=== PATIENT | male | born 1960 | race Caucasian/White ===

== ENCOUNTER 2021-07-10 16:50 | Inpatient (IN) ==
[~2021-07-10 16:50] MED LIST: CHECK SCOPOLAMINE PATCH PLACEMENT SCH
[2021-07-10] MEDS ORDERED: SCOPOLAMINE 1 MG TDSY TD ONE (17:25)
--- NOTE | 2021-07-10 17:25 | Anesthesiology Consultation ---
Date of Service July 10, 2021 Assessment & Plan (1) Encounter for pre-operative examination: Chart Review Chart Review: Acceptable Risk for Surgery Consults Requested none ASA ASA2 Proposed Anesthesia Anesthesia Type: General Risk / Benefits Reviewed With: PT / POA / Parent / Guardian, Accepts Plan and Informed Consent Obtained History Surgery Operation Date: 07/10/21 11:10 Proposed Procedures p Right Knee Incision and Drainage with Poly Exchange - Twan Mckeon DO Height/Weight Height: 6 ft Weight: 115.666 kg Allergies Allergy/AdvReac Type Severity Reaction Status Date / Time codeine Allergy Severe reddness/na Verified 07/10/21 16:59 usea/vomiti ng Medications Home Medications Medication Instructions Recorded Confirmed Last Taken acetaminophen 500 mg tablet 500 mg PO Q6H PRN 07/10/21 07/10/21 07/07/21 aspirin 81 mg capsule 81 mg PO DAILY 07/10/21 07/10/21 Unknown bupropion HCl 300 mg 24 hr tablet, 300 mg PO QAM 07/10/21 07/10/21 Unknown extended release (Wellbutrin XL) escitalopram oxalate 20 mg tablet 20 mg PO DAILY 07/10/21 07/10/21 Unknown levothyroxine 75 mcg tablet 75 mcg PO DAILY 07/10/21 07/10/21 Unknown (Synthroid) omeprazole 20 mg capsule,delayed 40 mg PO DAILY 07/10/21 07/10/21 Unknown release NPO Date Last Intake of Fluids: 07/10/21 Time Last Intake of Fluids: 09:00 Date Last Intake of Solids: 07/10/21 Time Last Intake of Solids: 09:00 Past Medical History Medical History Asthma Carpal tunnel syndrome Dyspnea Hx of bacterial meningitis Hypothyroidism Mediastinal lymphadenopathy Sarcoidosis Sleep disorder Varicose vein of leg Venous insufficiency Exercise / Class Metabolic Activity II 4-5 Yardwork/Stairs/Walk up hill Past Surgical History Surgical History History of repair of ACL Hx of total knee arthroplasty Past Anesthesia History No Hx of Anesthesia Complications and No Family Hx of Anesthesia Complications History of PONV No Hx of PONV and No Hx of Motion Sickness Social History Smoking Status: Never smoker Do You Dip or Chew Tobacco: No Hx Alcohol Use: No Hx Substance Use: No Physical Exam Vital Signs Last Vital Signs Temp 98.1 F 07/10/21 17:00 Pulse 80 07/10/21 17:00 Resp 18 07/10/21 17:00 BP 131/85 07/10/21 17:00 Pulse Ox 98 07/10/21 17:00 ENMT Mouth: no dentition abnormality Thyromental Distance: > or= 3.5 Finger Breadths Mallampati Class: II Neck normal visual inspection Respiratory normal respiratory effort Auscultation: lungs clear to auscultation bilaterally Cardiovascular Rate/Rhythm: regular rate and regular rhythm
[2021-07-10] MEDS ORDERED: ATROPINE SULFATE 0.1 MG/ML 10ML SYR IV PRN (17:27)
[2021-07-10] MEDS ORDERED: ePHEDrine sulfate 50 MG/ML AMP IV PRN (17:27)
[2021-07-10] MEDS ORDERED: ONDANSETRON INJ 2 MG/ML 2 ML VIAL IV PRN ×2 (17:27→20:43)
[2021-07-10] MEDS ORDERED: fentaNYL citrate 100 MCG/2 ML VIAL ONE ×2 (17:55→18:41)
[2021-07-10] MEDS ORDERED: MIDAZOLAM HCL 1 MG/ML 2ML VIAL ONE (17:55)
[2021-07-10] MEDS ORDERED: PROPOFOL IV EMULSION 10 MG/ML 20 ML VIAL IV ONE (17:55)
[2021-07-10] MEDS ORDERED: LIDOCAINE 2% 2 ML VIAL/AMP(20MG/ML) INFIL ONE (17:55)
[2021-07-10] MEDS ORDERED: ONDANSETRON INJ 2 MG/ML 2 ML VIAL ONE (17:55)
--- NOTE | 2021-07-10 18:08 | History & Physical Bridge Note ---
Date of Service July 10, 2021 History & Physical Bridge Note I have examined the patient, reviewed the History & Physical and in the interval since the performance of the History & Physical I have noted the following changes of clinical significance: no changes noted
[2021-07-10] MEDS ORDERED: ceFAZolin 330 MG/ML 1 GM VIAL ONE (18:09)
[2021-07-10] MEDS ORDERED: ceFAZolin 2,000 MG/15 ML IV PUSH IV ONE (18:14)
--- NOTE | 2021-07-10 18:23 | History & Physical Report ---
Date of Service July 10, 2021 Assessment & Plan (1) Postoperative wound dehiscence: Plan: Patient will require irrigation debridement, possible polyethylene bearing change of the right knee wound dehiscence. X-rays were taken at [facility] and are reading no fractures or dislocations. He will be taken to the operating room shortly by Dr. Mckeon for the above-noted I&D. History of Present Illness Chief Complaint: Pain right knee Primary Care Provider: Twan Mckeon DO Patient is a 60-year-old white male known to our practice who is status post right total knee arthroplasty by Dr. Mckeon just prior to 2020. The patient states he was doing quite well. He states that the incision look completely healed and he was progressing well with his physical therapy. Today he wanted to go outside to shovel snow off the sidewalk and driveway a little bit. In the process of shoveling snow, he slipped and fell and sounds like he hyperflexed his right knee. He had immediate pain in his right knee and when he looked down to look at the knee a little further, he noticed a lot of blood. He obviously had difficulty ambulating and was then brought to the [facility] emergency room. They examined him and and found dehiscence of his right knee wound. Dr. Mckeon's office was contacted and he had them transport the patient to [facility] for further care. Patient denies any shortness of breath, chest pain, lightheadedness prior to or after the fall. He did not lose consciousness. He is now here for repair of his wound dehiscence. Allergies Allergy/AdvReac Type Severity Reaction Status Date / Time codeine Allergy Severe reddness/na Verified 07/10/21 16:59 usea/vomiti ng Home Medications Medication Instructions Recorded Confirmed Type acetaminophen 500 mg tablet 500 mg PO Q6H PRN 07/10/21 07/10/21 History aspirin 81 mg capsule 81 mg PO DAILY 07/10/21 07/10/21 History bupropion HCl 300 mg 24 hr tablet, 300 mg PO QAM 07/10/21 07/10/21 History extended release (Wellbutrin XL) escitalopram oxalate 20 mg tablet 20 mg PO DAILY 07/10/21 07/10/21 History levothyroxine 75 mcg tablet 75 mcg PO DAILY 07/10/21 07/10/21 History (Synthroid) omeprazole 20 mg capsule,delayed 40 mg PO DAILY 07/10/21 07/10/21 History release Past Med/Surg History Medical History Asthma Carpal tunnel syndrome Dyspnea Hx of bacterial meningitis Hypothyroidism Mediastinal lymphadenopathy Sarcoidosis Sleep disorder Varicose vein of leg Venous insufficiency Surgical History History of repair of ACL Hx of total knee arthroplasty Social History Smoking Status: Never smoker Second Hand Exposure: No; Do You Dip or Chew Tobacco: No; Tobacco Cessation Education Requested by Patient: No Hx Alcohol Use: No Hx Substance Use: No Preferred Language: Danish Communication Ability: Effective Visual Impairment: Diminished Hearing Ability: Use of Hearing Aid 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 Beliefs That Will Affect Care: None marital status: Current Living Situation: Spouse Other Information That Helps Us Care for You: No Feels Safe at Home: Yes Safety Concerns: Feels Safe At This Time Assistive Devices: Cane Review of Systems Review of Systems: All systems reviewed & are unremarkable except as noted in HPI & below Physical Exam Constitutional: WD/WN, vitals as above Eyes: PERRL, conjunctivae normal, anicteric sclerae ENMT: external ear and nose normal, oropharynx normal Neck: trachea midline, no thyromegaly Respiratory: normal respiratory effort, lungs clear to auscultation Cardiovascular: RRR, no murmur, no edema Gastrointestinal (Abdomen): normal bowel sounds, soft, nontender, no hepatosplenomegaly Musculoskeletal: On examination of the patient's right knee, he has a large dressing over the right knee that is covered in blood and finds a large wound dehiscence underneath. No attempts were made to do range of motion of the right knee. He has good range of motion of his right ankle and toes and denies any decreased sensation. Left lower extremity is unaffected at this time and he denies any pain at the left hip, knee, ankle. Upper extremities are unaffected and range of motion is within normal limits. He has no gross motor or sensory loss seen at this time. Distal pulses are equal bilaterally of the upper and lower extremities. Skin: no rashes, warm and dry Results & Data Results & Data ([facility]) Vital Signs (Past 12 Hours) Vital Signs Temp Pulse Resp BP Pulse Ox 07/10/21 17:00 36.7 C 80 18 131/85 98
[2021-07-10] MEDS ORDERED: DEXAMETHASONE SOD INJ 4 MG/ML VIAL ONE (18:37)
--- NOTE | 2021-07-10 19:27 | Operative Report ---
Post Operative Report Pre & Post Diagnosis Operation Date: 07/10/21 11:10 Pre-Op Diagnosis: Right Total Knee Arthroplasty Wound Dihiscence Post-Op Diagnosis: Right Total Knee Arthroplasty Wound Dihiscence I identified the patient and participated in the time-out.: Yes Procedure Operation Date: 07/10/21 11:10 Actual Procedures p Right Knee Incision and Drainage with Poly Exchange(Right) to size G 12 polyrepair medial retinaculum repair subcu and skin Twan Mckeon DO Surgeon Twan Mckeon DO Casket Inspector Kavin GROVES Estimated Blood Loss 5 Findings Consistent with Post-Op Diagnosis Patient presents 1 month after having had a right total knee arthroplasty was shoveling snow and slipped on the underlying ice fell and dehisced his entire incision as well as medial retinacular repair with exposed metal Specimens Emy Drains None Anesthesia Type General Complications none Disposition Accompanied Patient To Recovery: No Disposition: Recovery Room Indications Patient presents with an exposed total knee arthroplasty after a bad fall on flexed knee in the snow possible underlying ice with a complete wound dehiscence of his medial retinaculum and skin Description of Procedure Patient presents after having had a fall slipping on the ice with sustaining a dehiscence of the right total knee arthroplasty as well as the deep retinaculum was completely ripped open patient presents with visible metal from the distal femur after proper prepping and draping the wound was irrigated with 9 L of sterile saline solution the polyethylene was removed it was also irrigated the Betadine soak was performed the thickness hemostasis was obtained to maintain the subcu tissues were all wound irrigated thoroughly meticulously a trial of a size 12 was placed and subsequently removed subsequently and the final polyethylene trial bipolar component was placed a size 12 wound was irrigated once again with copious sterile saline solution the stability of the knee in flexion extension mid flexion was excellent subsequently the patient socially had a medial retinacular wound was closed with #1 Vicryl subcu was closed with 0 Vicryl skin was closed with skin and skin clips a Prevena dressing was placed the patient placed in a postoperative knee immobilizer meticulous hemostasis having been obtained and maintained at all timesDue to the complex nature of the procedure, the entire surgery was performed with the operational assistance of [PAC Name]. The training program assistant, under direct supervision, was involved in the actual performance of all aspects of the surgical procedure including hemostasis, tissue retraction and incision, instrument management, patient positioning, and wound closure. I attest to the content of the Intraoperative Record and any orders documented therein. Any exceptions are noted below.
[2021-07-10] MEDS: fentaNYL citrate 100 MCG/2 ML VIAL IV PRN ×4 (19:56→20:11)
--- NOTE | 2021-07-10 20:21 | Anesthesiology Progress Note ---
Date of Service July 10, 2021 Anesthesia Post Procedure Vital Signs Vital Signs: Temp Pulse Pulse Resp BP BP Pulse Ox 07/10/21 20:10 79 19 136/96 92 07/10/21 20:00 80 16 146/96 H 100 07/10/21 19:52 36.3 C L 86 20 168/100 H 100 07/10/21 17:00 36.7 C 80 18 131/85 98 Pain Intensity Right Knee: Pain Intensity: 4 Transfer of Care Handoff Completed per policy Notes Mental Status: alert / awake / arousable Patient Amnestic to Procedure: Yes Nausea / Vomiting: adequately controlled Pain: adequately controlled Airway Patency, RR, SpO2: stable & adequate BP & HR: stable & adequate Hydration State: stable & adequate Anesthetic Complications: no major complications apparent
[2021-07-10] MEDS ORDERED: bisacodyL 10 MG SUPP PR PRN (20:43)
[2021-07-10] MEDS ORDERED: oxyCODONE HCL IR 5 MG TAB (IMMEDIATE RELEASE) PO PRN (20:43)
[2021-07-10] MEDS ORDERED: MAGNESIUM HYDROXIDE SUSP 30 ML UDC PO PRN (20:43)
[2021-07-10] MEDS ORDERED: NALOXONE HCL 0.4 MG/1 ML VIAL/CARP IV PRN (20:43)
[2021-07-10] MEDS ORDERED: SODIUM CHLORIDE 0.9% 1000ML 1,000 ML IV SCH (20:45)
[2021-07-10] MEDS ORDERED: SENNA 8.6 MG TAB PO SCH (21:00)
[2021-07-10] MEDS: KETOROLAC TROMETHAMINE 15 MG/ML VIAL IV SCH (21:37)
[2021-07-10] MEDS: ACETAMINOPHEN 500 MG TAB PO SCH (21:37)
[2021-07-10] MEDS: DOCUSATE SODIUM 100 MG CAP PO SCH (21:37)
[2021-07-11] MEDS: ceFAZolin 2000MG 2,000 MG/15 ML SYR IV SCH ×2 (02:51→11:00)
[2021-07-11] MEDS: HYDROmorphone INJ 0.5 MG/0.5 ML SYR IV PRN ×2 (04:03→10:27)
[2021-07-11] MEDS: KETOROLAC TROMETHAMINE 15 MG/ML VIAL IV SCH ×2 (05:51→12:05)
[2021-07-11] MEDS: ACETAMINOPHEN 500 MG TAB PO SCH ×2 (05:51→14:22)
[2021-07-11] MEDS ORDERED: LEVOTHYROXINE SODIUM 75 MCG TABLET PO SCH (06:30)
[2021-07-11 07:14] LABS: Hematocrit (blood only) 39.6 % (42-52); Hemoglobin 13.1 g/dL (14.0-18.0); Mean Corpuscular Hemoglobin 31.6 pg (25-34); Mean Corpuscular Hgb Conc 33.1 g/dL (32-36); Mean Corpuscular Volume 95.4 fL (80-100); Mean Platelet Volume 9.4 fL (7.4-10.4); Platelet Count 311 K/uL (130-400); RDW Coefficient of Variation 13.1 % (11.5-14.5); RDW Standard Deviation 45.2 fL (36.4-46.3); Red Blood Count 4.15 M/uL (4.7-6.1); White Blood Count 12.33 K/uL (4.8-10.8)
--- NOTE | 2021-07-11 07:28 | XRay Report ---
XR knee RT 1 or 2V routine CLINICAL HISTORY: Surgical Post Op COMPARISON: None FINDINGS: Alignment of the right knee arthroplasty is anatomic. There is no periprosthetic fracture or unexpected radiopaque foreign body. Skin mariel are present. A radiodensity along the lateral met aphysis of the distal right femur is postsurgical. IMPRESSION: Expected findings following total right knee arthroplasty. ACT 112: Negative or not required by law. Electronically signed by: Walt Cardona M.D. 07/11/2021 7:27 AM
[2021-07-11 07:32] LABS: BUN Creatinine Ratio 23.7 (10-20); Calcium 8.7 mg/dl (8.5-10.1); Creatinine Clr Calc Pharmacy 106.3 ml/min; Est GFR (African American) 97.9 ml/min; Est GFR (Non-African American) 84.5 ml/min; Potassium 4.6 mmol/L (3.5-5.1)
[2021-07-11] MEDS: DOCUSATE SODIUM 100 MG CAP PO SCH (08:51)
[2021-07-11] MEDS ORDERED: buPROPion XL 300 MG TABCR PO SCH (09:00)
[2021-07-11] MEDS ORDERED: ESCITALOPRAM OXALATE 20 MG TAB PO SCH (09:00)
[2021-07-11] MEDS ORDERED: MULTIVITAMIN TAB PO SCH (09:00)
[2021-07-11] MEDS ORDERED: ASPIRIN 81 MG ECTAB PO SCH (09:00)
--- NOTE | 2021-07-11 09:23 | Orthopedic Progress Note ---
Date of Service July 11, 2021 Assessment & Plan (1) Postoperative wound dehiscence: Plan: POD 1 s/p I&D right knee, Polyethylene bearing change for wound dehiscence. PT/OT protocols - Immobilizer on at all times. No ROM. DVT prophylaxis - ASA bid, AMY's Pain management as written. DC planning - Home with home PT. Addendum 12:28pm - Pt progressing well with PT. Plan for dc to home. Admission and Anticipated Discharge Date Admission Date: July 10, 2021 Subjective POD 1 Pt sitting up in bed awake, alert. Pain controlled fairly well. States he's having some thigh pain this AM and mild pain around his lower quadriceps area near the knee. Discussed his thigh pain was likely due to the tourniquette that was used during procedure. Lower quad pain likely due to surgical procedure. No other complaints this AM. Physical Exam Physical Exam: Dressings are C/D/I. Prevena wound vac functioning. Calves soft, NT. NV intact. Good DF/PF of the right foot. Results & Data ([facility]) Vital Signs (Past 12 Hours) Vital Signs Temp Pulse Pulse Resp BP Pulse Ox 07/11/21 07:23 37.0 C 83 18 110/67 96 07/11/21 06:32 94 07/11/21 04:00 36.5 C 81 18 112/72 97 07/10/21 23:13 36.4 C L 89 20 120/77 98 07/10/21 22:13 36.8 C 82 18 125/79 97 07/10/21 21:40 82 18 140/62 98 07/10/21 21:13 82 18 126/77 96 Laboratory Results Laboratory Results WBC 12.33 K/uL (4.8-10.8) H 07/11/21 06:40 RBC 4.15 M/uL (4.7-6.1) L 07/11/21 06:40 Hgb 13.1 g/dL (14.0-18.0) L 07/11/21 06:40 Hct 39.6 % (42-52) L 07/11/21 06:40 MCV 95.4 fL (80-100) 07/11/21 06:40 MCH 31.6 pg (25-34) 07/11/21 06:40 MCHC 33.1 g/dL (32-36) 07/11/21 06:40 RDW Std Deviation 45.2 fL (36.4-46.3) 07/11/21 06:40 RDW Coeff of Sherice 13.1 % (11.5-14.5) 07/11/21 06:40 Plt Count 311 K/uL (130-400) 07/11/21 06:40 MPV 9.4 fL (7.4-10.4) 07/11/21 06:40 Sodium 135 mmol/L (136-145) L 07/11/21 06:40 Potassium 4.6 mmol/L (3.5-5.1) 07/11/21 06:40 Chloride 104 mmol/L (98-107) 07/11/21 06:40 Carbon Dioxide 25 mmol/L (21-32) 07/11/21 06:40 Anion Gap 6 (3-11) 07/11/21 06:40 BUN 23 mg/dl (6-23) 07/11/21 06:40 Creatinine 0.97 mg/dl (0.6-1.4) 07/11/21 06:40 Est Cr Clr Drug Dosing 106.3 ml/min 07/11/21 06:40 Est GFR ( Amer) 97.9 ml/min 07/11/21 06:40 Est GFR (Non-Af Amer) 84.5 ml/min 07/11/21 06:40 BUN/Creatinine Ratio 23.7 (10-20) H 07/11/21 06:40 Glucose 152 mg/dl (70-99(Fasting)) H 07/11/21 06:40 Calcium 8.7 mg/dl (8.5-10.1) 07/11/21 06:40 Impressions Knee X-Ray 07/10/21 20:36 XR knee RT 1 or 2V routine CLINICAL HISTORY: Surgical Post Op COMPARISON: None FINDINGS: Alignment of the right knee arthroplasty is anatomic. There is no periprosthetic fracture or unexpected radiopaque foreign body. Skin mariel are present. A radiodensity along the lateral metaphysis of the distal right femur is postsurgical. IMPRESSION: Expected findings following total right knee arthroplasty. ACT 112: Negative or not required by law. Electronically signed by: Walt Cardona M.D. 07/11/2021 7:27 AM
--- NOTE | 2021-07-13 09:56 | Discharge Summary ---
Date of Service July 13, 2021 Admission HPI Per Admitting Provider Patient is a 60-year-old white male known to our practice who is status post right total knee arthroplasty by Dr. Mckeon just prior to 2020. The patient states he was doing quite well. He states that the incision look completely healed and he was progressing well with his physical therapy. Today he wanted to go outside to shovel snow off the sidewalk and driveway a little bit. In the process of shoveling snow, he slipped and fell and sounds like he hyperflexed his right knee. He had immediate pain in his right knee and when he looked down to look at the knee a little further, he noticed a lot of blood. He obviously had difficulty ambulating and was then brought to the [facility] emergency room. They examined him and and found dehiscence of his right knee wound. Dr. Mckeon's office was contacted and he had them transport the patient to [facility] for further care. Patient denies any shortness of breath, chest pain, lightheadedness prior to or after the fall. He did not lose consciousness. He is now here for repair of his wound dehiscence. Admission Exam Per Admitting Provider Physical Exam Constitutional: WD/WN, vitals as above Eyes: PERRL, conjunctivae normal, anicteric sclerae ENMT: external ear and nose normal, oropharynx normal Neck: trachea midline, no thyromegaly Respiratory: normal respiratory effort, lungs clear to auscultation Cardiovascular: RRR, no murmur, no edema Gastrointestinal (Abdomen): normal bowel sounds, soft, nontender, no hepatosplenomegaly Musculoskeletal: On examination of the patient's right knee, he has a large dressing over the right knee that is covered in blood and finds a large wound dehiscence underneath. No attempts were made to do range of motion of the right knee. He has good range of motion of his right ankle and toes and denies any decreased sensation. Left lower extremity is unaffected at this time and he denies any pain at the left hip, knee, ankle. Upper extremities are unaffected and range of motion is within normal limits. He has no gross motor or sensory loss seen at this time. Distal pulses are equal bilaterally of the upper and lower extremities. Skin: no rashes, warm and dry Principal Diagnosis Right Knee Wound Dehiscence s/p TKA Discharge Data Allergies Allergy/AdvReac Type Severity Reaction Status Date / Time codeine Allergy Severe reddness/na Verified 07/10/21 16:59 usea/vomiti ng Procedures Performed Operation Date: 07/10/21 11:10 Actual Procedures p Right Knee Incision and Drainage with Poly Exchange(Right) - Twan Mckeon DO Hospital Course (1) Postoperative wound dehiscence: Patient:LAI HUFFMAN Admit Date:07/10/21 MR#:[id number] Att Phy:Twan Mckeon D.O. Acct ID:[id number] Maci Phy:Twan Mckeon D.O. Date:1960 Fam Phy: Age:60 Location:3N Sex:M Room/Bed:N388-1 cc: ~ *NOTICE TO RECEIVING [employer]/AGENCY This information is strictly Confidential and protected under [place] law. [place] law prohibits you from making any further disclosure of this information unless further disclosure is expressly permitted by the written consent of the person to whom it pertains or is authorized by law. A general authorization for the release of medical or other information is not sufficient for this purpose. Hospital accepts no responsibility if the information is made available to any other person, INCLUDING THE PATIENT. ADDENDUM 07/11/21 151ddendum July 11, 2021 15:16 Nursing staff called. Pt voided 175ml on his own and had a post residual of 25ml. Ok for dc. Discussed with patient to continue pushing fluids for the next 24 hours. Addendum Signed By: <Electronically signed by Kavin Sanchez PA-C> 07/11/211517 Addendum Cosigned By: <Electronically signed by Twan Mckeon DO> 07/12/21 1005 Created: 07/11/21 ADDENDUM 07/11/21 1416Addendum July 11, 2021 14:08 Apparently the patient needed straight catheterization early this AM. Nursing staff notified me that patient had 180ml residual in his bladder currently but has not voided on his own yet. Intially set up for dc but dc now on hold. Pt to continue push oral fluids. If he is able to void, will plan for dc later today. Otherwise, he may need catheter placement. Will check in with nursing later today. Addendum Signed By: <Electronically signed by Kavin Sanchez PA-C> 07/11/211415 Addendum Cosigned By: <Electronically signed by Twan Mckeon DO> 07/12/21 1005 Created: 07/11/21 Date of Service July 11, 2021 Assessment & Plan (1) Postoperative wound dehiscence: Plan: POD 1 s/p I&D right knee, Polyethylene bearing change for wound dehiscence. PT/OT protocols - Immobilizer on at all times. No ROM. DVT prophylaxis - ASA bid, AMY's Pain management as written. DC planning - Home with home PT. Addendum 12:28pm - Pt progressing well with PT. Plan for dc to home. Admission and Anticipated Discharge Date Admission Date: July 10, 2021 Subjective POD 1 Pt sitting up in bed awake, alert. Pain controlled fairly well. States he's having some thigh pain this AM and mild pain around his lower quadriceps area near the knee. Discussed his thigh pain was likely due to the tourniquette that was used during procedure. Lower quad pain likely due to surgical procedure. No other complaints this AM. Physical Exam Physical Exam: Dressings are C/D/I. Prevena wound vac functioning. Calves soft, NT. NV intact. Good DF/PF of the right foot. Results & Data ([facility]) Vital Signs (Past 12 Hours) Vital Signs Temp Pulse Pulse Resp BP Pulse Ox 07/11/21 07:23 37.0 C 83 18 110/67 96 07/11/21 06:32 94 07/11/21 04:00 36.5 C 81 18 112/72 97 07/10/21 23:13 36.4 C L 89 20 120/77 98 07/10/21 22:13 36.8 C 82 18 125/79 97 07/10/21 21:40 82 18 140/62 98 07/10/21 21:13 82 18 126/77 96 Laboratory Results Laboratory Results WBC 12.33 K/uL (4.8-10.8) H 07/11/21 06:40 RBC 4.15 M/uL (4.7-6.1) L 07/11/21 06:40 Hgb 13.1 g/dL (14.0-18.0) L 07/11/21 06:40 Hct 39.6 % (42-52) L 07/11/21 06:40 MCV 95.4 fL (80-100) 07/11/21 06:40 MCH 31.6 pg (25-34) 07/11/21 06:40 MCHC 33.1 g/dL (32-36) 07/11/21 06:40 RDW Std Deviation 45.2 fL (36.4-46.3) 07/11/21 06:40 RDW Coeff of Sherice 13.1 % (11.5-14.5) 07/11/21 06:40 Plt Count 311 K/uL (130-400) 07/11/21 06:40 MPV 9.4 fL (7.4-10.4) 07/11/21 06:40 Sodium 135 mmol/L (136-145) L 07/11/21 06:40 Potassium 4.6 mmol/L (3.5-5.1) 07/11/21 06:40 Chloride 104 mmol/L (98-107) 07/11/21 06:40 Carbon Dioxide 25 mmol/L (21-32) 07/11/21 06:40 Anion Gap 6 (3-11) 07/11/21 06:40 BUN 23 mg/dl (6-23) 07/11/21 06:40 Creatinine 0.97 mg/dl (0.6-1.4) 07/11/21 06:40 Est Cr Clr Drug Dosing 106.3 ml/min 07/11/21 06:40 Est GFR ( Amer) 97.9 ml/min 07/11/21 06:40 Est GFR (Non-Af Amer) 84.5 ml/min 07/11/21 06:40 BUN/Creatinine Ratio 23.7 (10-20) H 07/11/21 06:40 Glucose 152 mg/dl (70-99(Fasting)) H 07/11/21 06:40 Calcium 8.7 mg/dl (8.5-10.1) 07/11/21 06:40 Impressions Knee X-Ray 07/10/21 20:36 XR knee RT 1 or 2V routine CLINICAL HISTORY: Surgical Post Op COMPARISON: None FINDINGS: Alignment of the right knee arthroplasty is anatomic. There is no periprosthetic fracture or unexpected radiopaque foreign body. Skin mariel are present. A radiodensity along the lateral metaphysis of the distal right femur is postsurgical. IMPRESSION: Expected findings following total right knee arthroplasty. ACT 112: Negative or not required by law. Total Time Total Time Spent Total Time Spent (In Minutes): 20 Discharge Plan Discharge Items Patient Disposition: Home - Self-Care Reason For Visit: Wound Dehiscence Right Knee Discharge Diagnosis: Wound Dehiscence Right Knee Activity: Per Instructions section Weightbearing: Right weightbearing Weightbearing Comment: as tolerated with immobilizer and walker Non-emergency contact: Surgeon Call non-emergency contact if: your pain is not controlled, your temperature is above 101.5, your wound has increased redness and your wound has increased drainage Follow-up/Referrals: Twan Mckeon DO [Primary Care Provider] - 07/21/21 10:20 am (Follow up in 2 weeks from the day of your surgery for a wound check. APPT WITH ELANA FELICIANO PA-C) Diet: Regular Addtl Attending Provider Instructions: Weight bearing as tolerated on the right lower extremity. YOU MUST WEAR YOUR IMMOBILIZER AT ALL TIMES. NO RANGE OF MOTION OF THE RIGHT KNEE AT THIS TIME. YOU MAY REMOVE THE IMMOBILIZER FOR CHANGING CLOTHES, BATHING, WOUND CHECKS/DRESSING CHANGES. Once your wound vac dressing has been removed, keep the wound covered with a sterile dressing of 4x4's and philip wrap until seen in the office Once the dressing is off, you can shower. Do not soak the wound. No tub baths. No direct shower pressure on the wound itself. Pad dry and put new dressing on. Prevena Wound Vac - This is a large suction dressing covering your incision. This will help pull any excess drainage from the wound and allow your incision to heal properly. You may shower with this if you can keep the unit outside of the shower. If any bleeding or leakage is noted please call your doctor's office. This will remain on your incision for 7 days and then should be removed. This can be done yourself or by the home nursing staff if applicable. The entire unit is disposable once removed. Once removed, keep incision clean and dry. If redness or drainage is noted, please call your surgeon. Follow up with Dr Mckeon in 2 weeks for wound check. Please call for appointment if one has not been made for you. [phone] Stand-Alone Forms: My [facility] [employer], Smoking Cessation Medications and DC Order Prescriptions: New aspirin 81 mg Tablet,Delayed Release (Dr/Ec) 81 mg PO BID 30 Days Qty: 60 RF: 0 acetaminophen [Tylenol Extra Strength] 500 mg Tablet 1,000 mg PO Q8 14 Days Qty: 84 RF: 0 cefadroxil 500 mg capsule 500 mg PO BID Qty: 28 RF: 1 oxycodone 5 mg Tablet 5 mg PO Q4H MDD 6 PRN (Reason: pain) Qty: 30 RF: 0 Continued levothyroxine [Synthroid] 75 mcg Tablet 75 mcg PO DAILY RF: 0 omeprazole 20 mg Capsule,Delayed Release(Dr/Ec) 40 mg PO DAILY RF: 0 escitalopram oxalate 20 mg Tablet 20 mg PO DAILY RF: 0 bupropion HCl [Wellbutrin XL] 300 mg Tablet Extended Release 24 Hr 300 mg PO QAM RF: 0 Discontinued acetaminophen [Tylenol Ex Str Arthritis Pain] 500 mg Tablet 500 mg PO Q6H PRN (Reason: Pain) RF: 0 aspirin 81 mg Capsule 81 mg PO DAILY RF: 0 Discharge Orders: Discharge Order (Routine); Ordered 07/11/21 Ordered By: Kavin Santana/Other Patient Handouts: Wound Dehiscence Admission Data Admit Date/Time: 07/10/21 18:23 Attending Provider: Twan Mckeon Admit Provider: Twan Mckeon Primary Care Provider: Twan Mckeon Other Interventions: Discharge Summary Assessment (RN) Last Done: 07/11/21 13:13
== END 2021-07-11 15:30 | disposition home or self-care (01) | DRG 909 ==
LOC: ASU 16:50 → 3N 18:23